=== PATIENT | female | born 1960 | race Hispanic/Latino ===

== ENCOUNTER 2016-12-09 10:18 | Emergency (ER) | payer MEDICAID, OTHER ==
[2016-12-09 10:19] VITALS: BMI 32.2
[2016-12-09 11:08] VITALS: RESP 18; TEMP 99
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
[2016-12-09 12:35] VITALS: O2SAT 98
--- NOTE | 2016-12-09 12:39 | RAD ---
PROCEDURE: Left Foot Radiographs. HISTORY: r/o fx COMPARISON: None. FINDINGS: BONES: Normal. No fracture. JOINTS: Normal. SOFT TISSUES: Normal. OTHER FINDINGS: None. IMPRESSION: Normal left foot radiographs.
[2016-12-09 13:49] VITALS: BP 121/75; PULSE 75
== END 2016-12-09 14:10 | disposition home or self-care (01) ==
LOC: ED 10:18
DX: M79.672 Pain in left foot (principal)

== ENCOUNTER 2018-12-06 12:05 | Emergency (ER) | payer MEDICAID, OTHER ==
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
[2018-12-06 12:19] VITALS: RESP 18; TEMP 99; BMI 38.0
[2018-12-06 14:10] VITALS: BP 138/80; PULSE 76; O2SAT 97
--- NOTE | 2018-12-06 14:46 | RAD ---
Date of service: 12/06/2018 PROCEDURE: Radiographs of the Left Shoulder HISTORY: fall COMPARISON: No prior. TECHNIQUE: 3 views obtained. FINDINGS: BONES: Normal. No fracture. JOINTS: Normal. Glenohumeral and acromioclavicular joints preserved. No osteoarthritis. SOFT TISSUES: Normal. OTHER FINDINGS: None. IMPRESSION: Normal radiographs of the left shoulder.
== END 2018-12-06 14:30 | disposition home or self-care (01) ==
LOC: ED 12:05
DX: S40.022A Contusion of left upper arm, initial encounter (principal); W19.XXXA Unspecified fall, initial encounter; F25.9 Schizoaffective disorder, unspecified; I10 Essential (primary) hypertension